=== PATIENT | male | born 2000 | race Caucasian/White ===

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

== ENCOUNTER 2018-02-21 | Emergency (ER) | payer OTHER ==
[~2018-02-21] MED LIST changes: +AMOXICILLIN500 M3 PO
[2018-02-21] MEDS ORDERED: FLONASE ALLERG9.9 ML NAS (12:07)
[2018-02-21] MEDS ORDERED: ZYRTEC10 MG PO (12:07)
[2018-02-21] MEDS ORDERED: AMOXICILLIN500 M2 PO (12:07)
== END 2018-02-21 11:59 | disposition home or self-care (01) ==
DX: J01.90 Acute sinusitis, unspecified (principal); J02.9 Acute pharyngitis, unspecified

== ENCOUNTER 2020-01-28 00:13 | Emergency (ER) | payer OTHER ==
[~2020-01-28] VITALS: Ht 165.1 cm; Wt 83.9 kg
[~2020-01-28 00:13] MED LIST changes: +AMOXICILLIN500 M2 PO; +FLONASE ALLERG9.9 ML NAS; +ZYRTEC10 MG PO
== END 2020-01-28 01:28 | disposition home or self-care (01) ==
LOC: ED 00:13
DX: H16.133 Photokeratitis, bilateral (principal); Z79.899 Other long term (current) drug therapy

== ENCOUNTER 2020-04-05 18:04 | Emergency (ER) | payer OTHER ==
[~2020-04-05] VITALS: Ht 167.6 cm; Wt 81.6 kg
[2020-04-05 18:52] LABS: HEMATOCRIT 44.5 % (42.0-52.0); MEAN CELL VOLUME 88.3 fl (80.0-94.0); MEAN CORPUSCULAR HGB 29.6 pg (27.0-31.0); MEAN CORPUSCULAR HGB CONC 33.5 g/dl (33.0-37.0); MEAN PLATELET VOLUME 9.7 fl (9.6-12.3); PLATELET COUNT AUTOMATED 295 10*3/uL (130-400); RED BLOOD COUNT 5.04 10*6/uL (4.50-5.90); RED CELL DISTRI WIDTH 12.6 % (0-14.5); WHITE BLOOD COUNT 24.9 10*3/uL (4.8-10.8)
[2020-04-05 19:07] LABS: ALBUMIN 4.2 gm/dl (3.1-4.5); ALKALINE PHOSPHATASE 82 U/L (45-117); BUN 14 mg/dl (7-24); CHLORIDE 105 mmol/L (98-107); CREATININE 0.86 mg/dL (0.70-1.30); SGOT/AST 22 IU/L (3-35); SGPT/ALT 63 U/L (12-78); SODIUM 137 mmol/L (136-145); TOTAL PROTEIN 8.4 gm/dL (6.4-8.2)
[2020-04-05 19:23] LABS: PLATELET SUFFICIENCY NORMAL (NORMAL); TOTAL CELLS COUNTED 100 #CELLS
[2020-04-05 19:27] LABS: BILIRUBIN Negative (Negative); BLOOD Negative (Negative); CLARITY Clear (Clear); COLOR Yellow (Yellow); GLUCOSE Negative (Negative); KETONE Negative (Negative); LEUKO ESTERASE Negative (Negative); NITRITE Negative (Negative); PH 5.5 (4.5-8.0); SPECIFIC GRAVITY 1.025 (1.001-1.030); UROBILINOGEN 0.2 E.U./dl (0.0-1.0)
[2020-04-05 19:39] LABS: EPITHELIAL CELLS 0-2; RBC 0-2 rbc/hpf (0-2); WBC 0-2 wbc/hpf (0-5)
== END 2020-04-05 21:17 | disposition left against medical advice (07) ==
LOC: ED 18:04
PROVIDERS: Physician Assistant
DX: R10.31 Right lower quadrant pain (principal); Z53.29 Procedure and treatment not carried out because of patient's decision for other reasons

== ENCOUNTER 2020-04-05 21:45 | Inpatient (IN) | payer OTHER ==
[~2020-04-05] VITALS: Ht 165.1 cm; Wt 81.6 kg
[2020-04-05 21:48] VITALS: BP 119/70
[2020-04-06] VITALS (11 sets, daily range): BP systolic 96–121; BP diastolic 40–66
[2020-04-06 05:22] LABS: ALBUMIN 3.5 gm/dl (3.1-4.5); BUN 12 mg/dl (7-24); CHLORIDE 108 mmol/L (98-107); SGOT/AST 12 IU/L (3-35); SGPT/ALT 47 U/L (12-78); SODIUM 139 mmol/L (136-145)
[2020-04-06 05:23] LABS: ALKALINE PHOSPHATASE 68 U/L (45-117); CREATININE 0.96 mg/dL (0.70-1.30); TOTAL PROTEIN 7.1 gm/dL (6.4-8.2)
[2020-04-06 06:10] LABS: BASO # 0.1 10*3/uL (0.0-0.1); BASO % 0.5 % (0.0-1.0); EOS # 0.2 10*3/uL (0.0-0.4); EOS % 1.7 % (1.0-4.0); HEMATOCRIT 41.8 % (42.0-52.0); LYMPH # 3.8 10*3/uL (1.3-4.4); LYMPH % 31.8 % (27.0-41.0); MEAN CELL VOLUME 90.5 fl (80.0-94.0); MEAN CORPUSCULAR HGB 29.2 pg (27.0-31.0); MEAN CORPUSCULAR HGB CONC 32.3 g/dl (33.0-37.0); MEAN PLATELET VOLUME 10.3 fl (9.6-12.3); MONO # 1.5 10*3/uL (0.1-1.0); MONO % 12.4 % (3.0-9.0); NEUT # 6.4 10*3/uL (2.3-7.9); NEUT % 53.4 % (47.0-73.0); PLATELET COUNT AUTOMATED 223 10*3/uL (130-400); RED BLOOD COUNT 4.62 10*6/uL (4.50-5.90); RED CELL DISTRI WIDTH 12.8 % (0-14.5); WHITE BLOOD COUNT 12.1 10*3/uL (4.8-10.8)
[2020-04-07 06:07] LABS: BUN 13 mg/dl (7-24); CHLORIDE 108 mmol/L (98-107); CREATININE 0.89 mg/dL (0.70-1.30); POTASSIUM 4.3 mmol/L (3.5-5.1); SODIUM 140 mmol/L (136-145)
[2020-04-07 06:40] LABS: HEMATOCRIT 42.3 % (42.0-52.0); MEAN CORPUSCULAR HGB 29.1 pg (27.0-31.0); MEAN CORPUSCULAR HGB CONC 32.4 g/dl (33.0-37.0); MEAN PLATELET VOLUME 10.8 fl (9.6-12.3); PLATELET COUNT AUTOMATED 200 10*3/uL (130-400); RED CELL DISTRI WIDTH 12.6 % (0-14.5); WHITE BLOOD COUNT 16.5 10*3/uL (4.8-10.8)
[2020-04-07 07:38] LABS: TOTAL CELLS COUNTED 100 #CELLS
[2020-04-07 07:39] LABS: PLATELET SUFFICIENCY NORMAL (NORMAL)
[2020-04-07 08:00] VITALS: BP 122/65
[2020-04-07] MEDS ORDERED: HYDROCODONE-AC1 EAC1 PO (09:00)
[2020-04-07] MEDS ORDERED: AUGMENTIN 875875 MG PO (09:00)
[2020-04-07] MEDS ORDERED: COLACE100 MG PO (09:32)
[2020-04-07] MEDS ORDERED: ZOFRAN4 MG PO (09:32)
== END 2020-04-07 10:45 | disposition home or self-care (01) | DRG 234 ==
LOC: ED 21:45 → 5E 22:07 → EDHOLD 22:07 → 5E 04-06 09:49
PROVIDERS: Family Medicine; ADMIT Internal Medicine; ATTEND Internal Medicine
PROC: 0DTJ4ZZ Resection of Appendix, Percutaneous Endoscopic Approach (ICD-10-PCS; principal; 2020-04-06)
DX: K35.80 Unspecified acute appendicitis (principal); R63.0 Anorexia; R79.82 Elevated C-reactive protein (CRP); R00.1 Bradycardia, unspecified; E87.8 Other disorders of electrolyte and fluid balance, not elsewhere classified; F17.210 Nicotine dependence, cigarettes, uncomplicated; Z71.6 Tobacco abuse counseling; Z68.29 Body mass index [BMI] 29.0-29.9, adult

== ENCOUNTER → 2021-02-28 | Outpatient (CLI) | payer OTHER ==
[~2021-02-28] MED LIST changes: +AUGMENTIN 875875 MG PO; +COLACE100 MG PO; +HYDROCODONE-AC1 EAC1 PO; +ZOFRAN4 MG PO
== END | disposition home or self-care (01) ==
LOC: COVID19 16:53
PROVIDERS: ATTEND Podiatrist Foot & Ankle Surgery
DX: Z20.822 Contact with and (suspected) exposure to COVID-19 (principal)

== ENCOUNTER → 2021-03-27 | Outpatient (CLI) | payer OTHER | END | disposition home or self-care (01) | LOC: COVID19 17:45 | PROVIDERS: ATTEND Internal Medicine | DX: U07.1 COVID-19 (principal) ==

== ENCOUNTER 2021-05-29 18:36 | Emergency (ER) | payer OTHER ==
[~2021-05-29] VITALS: Wt 79.4 kg
[2021-05-29] MEDS ORDERED: PREDNISONE20 M1 PO (21:59)
[2021-05-29] MEDS ORDERED: METHOCARBAMOL500 M1 PO (21:59)
== END 2021-05-29 22:46 | disposition home or self-care (01) ==
LOC: ED 18:36
DX: M54.32 Sciatica, left side (principal); Z87.891 Personal history of nicotine dependence; Z98.890 Other specified postprocedural states; Z90.49 Acquired absence of other specified parts of digestive tract

== ENCOUNTER 2022-11-01 19:27 | Emergency (ER) | payer OTHER ==
[~2022-11-01] VITALS: Ht 165.1 cm; Wt 74.8 kg
[~2022-11-01 19:27] MED LIST changes: +METHOCARBAMOL500 M1 PO; +PREDNISONE20 M1 PO
== END 2022-11-01 20:33 | disposition home or self-care (01) ==
LOC: ED 19:27
DX: S61.411A Laceration without foreign body of right hand, initial encounter (principal); Z90.49 Acquired absence of other specified parts of digestive tract; F17.210 Nicotine dependence, cigarettes, uncomplicated; W22.8XXA Striking against or struck by other objects, initial encounter; Y93.89 Activity, other specified; Y92.89 Other specified places as the place of occurrence of the external cause; Y99.8 Other external cause status

== ENCOUNTER 2023-08-25 13:36 | Emergency (ER) | payer SELFPAY ==
[~2023-08-25] VITALS: Ht 165.1 cm; Wt 87.5 kg
[2023-08-25] MEDS ORDERED: SODIUM CHLORIDE 0.9% 1,000 ML IV ONE (15:10)
[2023-08-25] MEDS ORDERED: Ketorolac Tromethamine 30 MG/ML VIAL IV ONE (15:10)
[2023-08-25] MEDS ORDERED: Ondansetron Hydrochloride 4 MG/2 ML VIAL IV ONE (15:10)
[2023-08-25 15:36] LABS: HEMATOCRIT 47.3 % (42.0-52.0); MEAN CELL VOLUME 90.1 fl (80.0-94.0); MEAN CORPUSCULAR HGB 29.9 pg (27.0-31.0); MEAN CORPUSCULAR HGB CONC 33.2 g/dl (33.0-37.0); MEAN PLATELET VOLUME 9.6 fl (9.6-12.3); PLATELET COUNT AUTOMATED 285 10*3/uL (130-400); RED BLOOD COUNT 5.25 10*6/uL (4.50-5.90); RED CELL DISTRI WIDTH 12.8 % (0-14.5); WHITE BLOOD COUNT 25.5 10*3/uL (4.8-10.8)
[2023-08-25 15:38] LABS: MANUAL DIFF REFLEX YES
[2023-08-25 15:57] LABS: BURR CELLS FEW; PLATELET SUFFICIENCY NORMAL (NORMAL); TOTAL CELLS COUNTED 100 #CELLS
[2023-08-25 15:58] LABS: BUN 13 mg/dl (9-23); CHLORIDE 105 mmol/L (98-107); POTASSIUM 4.8 mmol/L (3.4-5.1)
[2023-08-25] MEDS ORDERED: SODIUM CHLORIDE 0.9% 1,000 ML IV SCH (16:40)
[2023-08-25] MEDS ORDERED: IOHEXOL 300 MG/ML 100 ML VIAL IV ONE (16:50)
[2023-08-25] MEDS ORDERED: Ondansetron4 MG PO (19:47)
== END 2023-08-25 19:59 | disposition home or self-care (01) ==
LOC: ED 13:36
PROVIDERS: Nurse Practitioner
DX: A08.4 Viral intestinal infection, unspecified (principal); R11.2 Nausea with vomiting, unspecified; M79.10 Myalgia, unspecified site; R50.9 Fever, unspecified; R53.83 Other fatigue; Z90.49 Acquired absence of other specified parts of digestive tract; Z98.890 Other specified postprocedural states; F17.210 Nicotine dependence, cigarettes, uncomplicated